=== PATIENT | female | born 1980 | race Hispanic/Latino ===

== ENCOUNTER 2017-08-02 22:50 | Emergency (ER) | payer OTHER ==
[~2017-08-02] VITALS: Ht 165.1 cm; Wt 61.2 kg
[2017-08-02] MEDS ORDERED: SODIUM CHLORIDE 0.9% 1000ML 1,000 ML IV STA (23:16)
[2017-08-02] MEDS ORDERED: ONDANSETRON HCL INJ 2 MG/ML VIAL IV STA (23:29)
[2017-08-02] MEDS ORDERED: ONDANSETRON HCL INJ 2 MG/ML VIAL ONE (23:36)
[2017-08-03] MEDS ORDERED: BUTORPHANOL TARTRATE INJ 1 MG/ML VIAL IV ONE (00:15)
[2017-08-03 00:18] LABS: ALANINE AMINOTRANSFERASE 9 IU/L (0-55); ALBUMIN 3.8 g/dL (3.5-5.0); ALKALINE PHOSPHATASE 53 IU/L (40-150); ANION GAP 13.4 mmol/L (8-16); BLOOD UREA NITROGEN 10 mg/dL (7-26); BUN/CREATININE RATIO 13 (6-25); CALCIUM 9.2 mg/dL (8.4-10.2); CARBON DIOXIDE 22 mmol/L (22-29); CHLORIDE 100 mmol/L (98-107); CREATININE, SERUM 0.76 mg/dL (0.57-1.11); EST GLOMERULAR FILTRATION RATE > 60 ML/MIN (60-); GLUCOSE 137 mg/dL (74-118); POTASSIUM 3.4 mmol/L (3.5-5.1); SODIUM 132 mmol/L (136-145)
[2017-08-03 00:33] LABS: BASOPHILS # (AUTO) 0.1 (0.0-0.1); BASOPHILS % 0.3 % (0.0-1.0); EOSINOPHILS # (AUTO) 0.1 (0.0-0.4); EOSINOPHILS % 0.8 % (0.0-6.0); HEMATOCRIT 36.5 % (34.2-44.1); HEMOGLOBIN 12.2 g/dL (12.0-16.0); LYMPHOCYTES # (AUTO) 2.9 (1.0-3.2); LYMPHOCYTES % 16.7 % (18.0-39.1); MEAN CORPUSCULAR HEMOGLOBIN 29.9 pg (28-32); MEAN CORPUSCULAR HGB CONC 33.4 g/dL (31-35); MEAN CORPUSCULAR VOLUME 89.5 fL (81-99); MONOCYTES # (AUTO) 0.9 (0.2-0.8); MONOCYTES % 5.4 % (4.4-11.3); NEUTROPHILS # (AUTO) 13.1 (2.1-6.9); NEUTROPHILS % 76.3 % (38.7-80.0); PLATELET COUNT 345 x10e3/uL (140-360); RED BLOOD COUNT 4.08 x10e6/uL (3.6-5.1); RED CELL DISTRIBUTION WIDTH 13.3 % (11.7-14.4)
[2017-08-03 00:42] LABS: HCG,QUANTITATIVE 25051.15 mIU/mL (0-10)
--- NOTE | 2017-08-03 01:36 | Diagnostic Imaging Report ---
EXAM: Obstetric Pelvic Ultrasound INDICATION: 8.4 week PREG, PELVIC PAIN AND VAG BLEEDING COMPARISON: None TECHNIQUE: Transabdominal and transvaginal evaluation of the pelvis was performed in the transverse and longitudinal planes. CLINICAL HISTORY: 37 year old A0; last menstrual period: 06/04/2017 FINDINGS: Uterus: Orientation: Normal Size: 11.1 x 5.1 x 6.5 cm, enlarged Mass: None Cervix: Normal Gestational Sac: Nonvisualized Yolk sac: Not visualized Embryo/Fetus: Not visualized Right ovary Size: 3.4 x 1.9 x 2.6 cm Mass/Cyst: None Left ovary Size: 2.3 x 1.5 x 2 cm Mass/Cyst: None Cul-de-sac: No free fluid IMPRESSION: 1. No evidence of viable intrauterine . 2. Heterogeneity within the endometrial canal is compatible with blood products or retained products of conception. Signed by: Dr. Ronny Stacy M.D. on 08/03/2017 1:32 AM
[2017-08-03 03:27] VITALS: BP 122/45
== END 2017-08-03 03:32 | disposition home or self-care (01) ==
LOC: ER 22:50
DX: O03.9 Complete or unspecified spontaneous abortion without complication (principal); R10.2 Pelvic and perineal pain
CPT/HCPCS: 36415; 76817; 80053; 84702; 85025; 86850; 86900; 99284; J0595; J2405; J7030